=== PATIENT | male | born 1985 | race Asian ===

== ENCOUNTER 2017-03-30 12:24 | Outpatient (CLI) | payer BC ==
--- NOTE | 2017-03-30 16:00 | ULT ---
BILATERAL TESTICULAR ULTRASOUND WITH COLOR AND SPECTRAL DOPPLER IMAGING AND VASCULAR DUPLEX: HISTORY: A 32-year-old male with right testicular pain. FINDINGS: The right testis measures 4.2 x 2.1 x 2.2 cm. The left testis measures 3.9 x 2.7 x 1.7 cm. There a re several tiny punctate calcific foci within the testes, evidence for some microlithiasis. Trace a mount of fluid in both right and left scrotum. 0.2 x 0.3 cm left epididymal head cyst. Vascular duplex with color and spectral Doppler imaging demonstrates arterial inflow and venous outf low of both testes. No evidence for testicular torsion. IMPRESSION: Evidence for occasional microlithiasis. No intratesticular mass. No testicular torsion. Small lef t epididymal head cyst. POS: [facility]
== END 2017-03-30 12:25 | disposition home or self-care (01) ==
LOC: SCSULT 12:24
PROVIDERS: ATTEND Family Medicine
DX: N50.811 Right testicular pain (principal); N50.3 Cyst of epididymis
CPT/HCPCS: 76870; 93976